=== PATIENT | male | born 1990 | race Caucasian/White ===

== ENCOUNTER 2016-07-15 07:19 | Emergency (ER) | payer OTHER ==
[~2016-07-15] VITALS: Ht 180.3 cm; Wt 90.0 kg
[2016-07-15 07:20] VITALS: BP_SYST 167; BP_SYST 178; BP_DIAS 105; BP_DIAS 95; PULSE 88; RESP 16; TEMP 98.5; O2SAT 99
[2016-07-15] MEDS ORDERED: SODIUM CHLORIDE 0.9% FLUSH 10 ML FLUSH IVF PRN (07:45)
[2016-07-15] MEDS ORDERED: LIDOCAINE HCL 1% 50 ML VIAL XX ONE (07:45)
[2016-07-15] MEDS ORDERED: AZITHROMYCIN 250 MG TAB PO ONE (07:45)
--- NOTE | 2016-07-15 07:51 | PD ---
HPI Chief Complaint: Complaint Time Seen by Provider: 07:45 Travel History International Travel<30 days: No Contact w/Intl Traveler<30days: No Traveled to known affect area: No History of Present Illness HPI 25-year-old male presents today with complaints of dysuria and penile discharge. The patient states that he is sexually active last had sexual relations one week ago. He denies any fevers, chills. Denies a flank pain or abdominal pain. There are no other complaints the time of my examination. PFSH Past Medical History Hx Anticoagulant Therapy: No Cardiovascular Problems: No Chemotherapy: No Cerebrovascular Accident: No Diabetes: No Respiratory: No Past Surgical History Hysterectomy: No Social History Alcohol Use: No Tobacco Use: Yes Substance Use: No Allergies-Medications (Allergen,Severity, Reaction): Coded Allergies: No Known Allergies (Unverified , 01/07/15) Reported Meds & Prescriptions Reported Meds & Active Scripts Active No Active Prescriptions or Reported Medications Review of Systems Except as stated in HPI: all other systems reviewed are Neg Gastrointestinal: No: Nausea, Vomiting Genitourinary: Positive: Dysuria, Other (penile discharge) Musculoskeletal: No: Myalgias, Pain (no flank pain) Physical Exam Narrative GENERAL: Well-nourished, well-developed patient. SKIN: Focused skin assessment warm/dry. HEAD: Normocephalic/atraumatic. EYES: No scleral icterus. No injection or drainage. CARDIOVASCULAR: Regular rate and rhythm without murmurs, gallops, or rubs. RESPIRATORY: Breath sounds equal bilaterally. No accessory muscle use. GASTROINTESTINAL: Abdomen soft, non-tender, nondistended. GENITOURINARY: Testes descended bilaterally without pain. No lesions or erythema. Clear and yellow urethral discharge BACK: Nontender without obvious deformity. No CVA tenderness. Data Data Last Documented VS Vital Signs Date Time Temp Pulse Resp B/P Pulse Ox O2 Delivery O2 Flow Rate FiO2 07/15/16 07:20 98.5 88 16 167/95 99 Orders Urinalysis - C+S If Indicated (07/15/16 07:45) Azithromycin (Zithromax) (07/15/16 07:45) Ceftriaxone Inj (Rocephin Inj) (07/15/16 07:45) Sodium Chloride 0.9% Flush (Ns Flush) (07/15/16 07:45) Lidocaine 1% Inj (50 Ml) (Xylocaine 1% I (07/15/16 07:45) [facility] [place] Medical Decision Making Medical Screen Exam Complete: Yes Emergency Medical Condition: Yes Differential Diagnosis STI versus urethritis versus epididymitis versus UTI Narrative Course 25-year-old male presents with dysuria and penile discharge. The patient is sexually active and reports last sexual activity 1 week ago. I informed him that given his symptoms we will treat him empirically with Rocephin and Zithromax. I did inform him we would send off cultures and if they were positive we would make him aware of the positive cultures. He is instructed to return to be develops any worsening discomfort, fevers chills, or any other reason the concerns them. Diagnosis Primary Impression: NONSPECIFIC URETHRITIS Additional Instructions: Recommend having her partner checked as well. Scripts No Active Prescriptions or Reported Meds Disposition: 01 DISCHARGE HOME Condition: Stable Marvin Schwartz MD July 15, 2016 07:51
[2016-07-15 08:54] LABS: BACTERIA, URINE RARE /hpf; BLOOD, URINE NEG (NEG); COMMENT (UR) CULTURE INDICATED; CULTURE IF INDICATED CULTURE INDICATED; GLUCOSE,URINE NEG (NEG); KETONE, URINE NEG (NEG); MUCUS URINE FEW /lpf (OCC); NITRITE,URINE NEG (NEG); URINE COLOR LIGHT-YELLOW (YELLW/STRAW)
[2016-07-15 09:47] VITALS: BP 151/88
== END 2016-07-15 09:53 | disposition home or self-care (01) ==
LOC: NEPC 07:19
DX: A54.01 Gonococcal cystitis and urethritis, unspecified (principal)
CPT/HCPCS: 81001; 87077; 87086; 87185; 96372; 99283; J0696

== ENCOUNTER 2016-08-21 08:36 | Emergency (ER) | payer SELFPAY ==
[~2016-08-21] VITALS: Ht 180.3 cm; Wt 90.0 kg
[2016-08-21 08:38] VITALS: BP 169/98; PULSE 91; RESP 15; TEMP 98.2; O2SAT 99
[2016-08-21] MEDS ORDERED: LISI2.5T3 PO (08:54)
--- NOTE | 2016-08-21 09:43 | RADRPT ---
EXAM DATE/TIME: 08/21/2016 09:37 [place] COMPARISON: No previous studies available for comparison. INDICATIONS : Evaluate for obstruction Abdomen pain MEDICAL HISTORY : Constipation SURGICAL HISTORY : None. ENCOUNTER: Initial ACUITY: 2 days PAIN SCORE: 9/10 LOCATION: Abdomen FINDINGS: Supine and upright views of the abdomen were performed. The abdominal bowel gas pattern is normal. No air fluid levels are seen. No abnormal masses, calcifications, or organomegaly is seen. The visu alized lower lungs are clear. No evidence of free intraperitoneal gas. The osseous structures are u nremarkable. CONCLUSION: No acute disease. Nicolás Kapoor MD FACR on August 21, 2016 at 9:41 Board Certified Radiologist. This report was verified electronically.
--- NOTE | 2016-08-21 09:43 | PD ---
HPI Chief Complaint: GI Complaint Time Seen by Provider: 09:41 Travel History International Travel<30 days: No Contact w/Intl Traveler<30days: No Traveled to known affect area: No History of Present Illness HPI 26-year-old male with history of recent dental procedure currently on pain medications, presents to the ER today for 2 days history of inability to make a bowel movement, hard stools, blood in the stools. He denies any abdominal pain , nausea, vomiting, or any other symptoms. He had tried to take over-the- counter constipation medications without significant relief. Modifying Factors: None Associated Signs & Symptoms: Difficulty having a bowel movement, blood in the stools Risk factors: On pain medications PFSH Past Medical History Hx Anticoagulant Therapy: No Cardiovascular Problems: No Chemotherapy: No Cerebrovascular Accident: No Diabetes: No Hypertension: Yes Respiratory: No Past Surgical History Surgical History: No Previous Surgery Hysterectomy: No Social History Alcohol Use: No Tobacco Use: Yes Substance Use: No Allergies-Medications (Allergen,Severity, Reaction): Coded Allergies: No Known Allergies (Unverified , 01/07/15) Reported Meds & Prescriptions Reported Meds & Active Scripts Active Reported Lisinopril 2.5 Mg Tab 2.5 Mg PO DAILY Review of Systems Except as stated in HPI: all other systems reviewed are Neg Physical Exam Narrative GENERAL: Well-developed, Young male patient currently in no acute distress. Awake and oriented 3. SKIN: Focused skin assessment warm/dry. HEAD: Atraumatic. Normocephalic. EYES: Pupils equal and round. No scleral icterus. No injection or drainage. ENT: No nasal bleeding or discharge. Mucous membranes pink and moist. NECK: Trachea midline. No JVD. CARDIOVASCULAR: Regular rate and rhythm. No murmur appreciated. RESPIRATORY: No accessory muscle use. Clear to auscultation. Breath sounds equal bilaterally. GASTROINTESTINAL: Abdomen soft, non-tender, nondistended. Hepatic and splenic margins not palpable. Benign. RECTAL EXAM: No masses or tenderness, stool is brown. Hemoccult trace positive. MUSCULOSKELETAL: No obvious deformities. No clubbing. No cyanosis. No edema. NEUROLOGICAL: Awake and alert. No obvious cranial nerve deficits. Motor grossly within normal limits. Normal speech. PSYCHIATRIC: Appropriate mood and affect; insight and judgment normal. Data Data Last Documented VS Vital Signs Date Time Temp Pulse Resp B/P Pulse Ox O2 Delivery O2 Flow Rate FiO2 08/21/16 08:51 16 08/21/16 08:38 98.2 91 169/98 99 Orders Abdomen, Flat & Upright (08/21/16 09:03) [facility] Medical Decision Making Medical Screen Exam Complete: Yes Emergency Medical Condition: Yes Medical Record Reviewed: Yes Differential Diagnosis Constipation versus obstipation versus obstruction Narrative Course Abdomen is soft and nontender, nondistended, I do not suspect an acute intra- abdominal process. Rectal exam shows no signs of significant acute bleeding but he does have trace blood in the stools. This could be secondary to having the hard stools and I do not find any signs of acute masses at this time. X- ray of the abdomen did not show any signs of acute obstruction. At this point, I suspect that he is having constipation secondary to pain medication. My plan would be to release him with symptomatic relief or constipation. Return for any worsening in pain, bleeding, vomiting, and as needed. Patient will need to follow-up with his primary care physician for further evaluation of blood in the stools. The plan was discussed with the patient and he states understanding. [facility] Point of Care Internal Pos. & Neg. Controls: Passed Fecal Specimen Occult Blood: Positive Diagnosis Primary Impression: Constipation Additional Impression: Blood in feces Med/Other Pt SpecificInfo: Prescription(s) given Scripts Docusate Sodium (Colace)100 Mg [id number] Mg PO BID PRN (CONSTIPATION) #14 Prov:Kavya Laguerre MD 08/21/16 Peg-Electrolytes (Golytely 236 gm)4,000 Ml Soln2,000 Ml PO ONCE #1 CONTAINER Ref 0 Prov:Kavya Laguerre MD 08/21/16 Disposition: 01 DISCHARGE HOME Condition: Stable Kavya Laguerre MD Aug 21, 2016 09:43
[2016-08-21] MEDS ORDERED: COLA100C PO (09:55)
[2016-08-21] MEDS ORDERED: COLY4000S PO (09:55)
== END 2016-08-21 10:16 | disposition home or self-care (01) ==
LOC: NEPC 08:36
DX: K59.00 Constipation, unspecified (principal); K92.1 Melena; I10 Essential (primary) hypertension; Z72.0 Tobacco use; Z98.890 Other specified postprocedural states; Z79.899 Other long term (current) drug therapy
CPT/HCPCS: 74020; 99283

== ENCOUNTER 2017-07-30 01:44 | Emergency (ER) | payer SELFPAY ==
[~2017-07-30 01:44] MED LIST: COLA100C5 PO; COLY4000S PO; LISI2.5T3 PO
--- NOTE | 2017-07-30 03:12 | PD ---
HPI Chief Complaint: Complaint Time Seen by Provider: 03:02 Travel History International Travel<30 days: No Contact w/Intl Traveler<30days: No Traveled to known affect area: No History of Present Illness HPI Patient is a 26-year-old male presenting to the emergency department for evaluation of burning with urination. Patient states he had unprotected sex last week. He states his symptoms started today. They are mild in nature, constant. Patient denies any fever, chills, nausea, vomiting, abdominal pain. Patient states he had this unprotected sexual encounter while he was intoxicated. PFSH Past Medical History Medical History: Denies Significant Hx Hx Anticoagulant Therapy: No Cardiovascular Problems: No Chemotherapy: No Cerebrovascular Accident: No Diabetes: No Hypertension: Yes Respiratory: No Past Surgical History Hysterectomy: No Social History Alcohol Use: No Tobacco Use: Yes Substance Use: No Allergies-Medications (Allergen,Severity, Reaction): Coded Allergies: No Known Allergies (Unverified , 01/07/15) Reported Meds & Prescriptions Reported Meds & Active Scripts Active Colace (Docusate Sodium) 100 Mg Capsule 100 Mg PO BID PRN Golytely 236 gm (Polyethylene Glycol/Electrolytes) 4,000 Ml Soln 2,000 Ml PO ONCE Reported Lisinopril 2.5 Mg Tab 2.5 Mg PO DAILY Review of Systems Except as stated in HPI: all other systems reviewed are Neg Genitourinary: Positive: Dysuria Physical Exam Narrative GENERAL: Well-developed, well nourished alert male. Presenting in no acute distress. SKIN: Warm and dry. HEAD: Normocephalic. EYES: No scleral icterus. No injection or drainage. NECK: Supple, trachea midline. No JVD or lymphadenopathy. CARDIOVASCULAR: Regular rate and rhythm without murmurs, gallops, or rubs. RESPIRATORY: Breath sounds equal bilaterally. No accessory muscle use. GASTROINTESTINAL: Abdomen soft, non-tender, nondistended. MUSCULOSKELETAL: No cyanosis, or edema. BACK: Nontender without obvious deformity. No CVA tenderness. Data Data Orders Orders Urinalysis - C+S If Indicated (07/30/17 02:00) Gc And Chlamydia Pcr (07/30/17 02:00) Labs Laboratory Tests Test 07/30/17 02:00 [facility] Medical Decision Making Medical Screen Exam Complete: Yes Emergency Medical Condition: Yes Differential Diagnosis UTI versus STD versus balanitis versus other Narrative Course Patient is well-appearing male presenting for evaluation of burning with urination. He has had unprotected sex last week. Symptoms started today. Patient's vital signs are stable although uncharted. Patient was treated empirically for chlamydia and gonorrhea. Patient was advised to use condoms to prevent any further STD exposure. He was advised to avoid sexual activity for 1 week. He was also encouraged to follow-up with the [facility] department for further STD screening. Patient was encouraged to return to emergency department any new or worsening symptoms. Patient stable for discharge. Diagnosis Primary Impression: Dysuria Referrals: [facility] Dept. Patient Instructions: General Instructions, Sexually Transmitted Diseases (ED) Additional Instructions: Avoid sexual activity for 1 week Use condoms Follow-up at the health department Return to emergency department for any new worsening symptoms Med/Other Pt SpecificInfo: No Change to Meds Disposition: 01 DISCHARGE HOME Condition: Stable Emelyn Hernandez July 30, 2017 03:12
[2017-07-30 07:20] LABS: BILIRUBIN, URINE NEGATIVE (NEG); BLOOD, URINE NEG (NEG); GLUCOSE,URINE NEG (NEG); KETONE, URINE NEG (NEG); NITRITE,URINE NEG (NEG); URINE COLOR YELLOW (YELLW/STRAW); URINE LEUKOCYTE ESTERASE NEGATIVE (NEG)
[2017-07-30 07:21] LABS: WBC, URINE 0-2 /hpf (0-5)
== END 2017-07-30 04:07 | disposition home or self-care (01) ==
LOC: NEPD 01:44
DX: R30.0 Dysuria (principal); Z72.0 Tobacco use
CPT/HCPCS: 81001; 87491; 87591; 99283